=== PATIENT | male | born 1965 | race Caucasian/White ===

== ENCOUNTER 2018-12-07 13:23 | Inpatient (IN) ==
[2018-12-07] MEDS ORDERED: DEXAMETHASONE SODIUM PHOSP/PF 10 MG/ML VIAL ONE (13:30)
[2018-12-07] MEDS ORDERED: ALBUTEROL SULFATE/IPRATROPIUM 3 ML NEBU IH ONE ×2 (13:30)
[2018-12-07] MEDS ORDERED: DEXAMETHASONE SODIUM PHOSP/PF 10 MG/ML VIAL IV ONE (13:30)
--- NOTE | 2018-12-07 13:37 | ERNOTE ---
Dyspnea - Date Date of Service: 12/07/18 - General Presenting Symptoms: shortness of breath Time Seen by Provider: 12/07/18 13:34 Source: patient - Immun/Allergies/Home Medications Immunizations: IMMUNIZATION HX Immunizations Up to Date No History of Influenza Vaccine No Hx Pneumococcal Vaccination No Allergies/Adverse Reactions: Allergies Tetanus Vaccines and Toxoid [Tetanus Vaccines & Toxoid] Allergy (Verified 12/07/18 13:31) Home Medications: HOME MEDICATIONS clonidine HCl 0.3 mg tablet 0.3 mg PO BID #60 tab 06/13/18 [Last Taken Unknown] atorvastatin 40 mg tablet 40 mg PO DAILY #90 tab 07/25/18 [Last Taken Unknown] metoprolol succinate ER 200 mg tablet,extended release 24 hr 200 mg PO DAILY #90 tab 07/25/18 [Last Taken Unknown] omeprazole 20 mg capsule,delayed release 20 mg PO DAILY #90 cap 07/25/18 [Last Taken Unknown] duloxetine 60 mg capsule,delayed release 120 mg PO DAILY #60 cap 08/04/18 [Last Taken Unknown] amlodipine 10 mg tablet See Rx Instructions .ROUTE .COMPLEX #90 tablet 10/20/18 [Last Taken Unknown] hydroxyzine HCl 25 mg tablet 50 mg PO BID PRN #120 tab 10/20/18 [Last Taken Unknown] - History of Present Illness Narrative: Patient is a 53-year-old gentleman who presents to the emergency room from the clinic acutely dyspneic. Apparently this has been going on for the past 3 days. Patient fell out his bed 3 days ago and landed on the left chest area now complaining of lateral chest wall pain, dyspnea. While at the clinic patient was noted to be tachycardic and tachypneic so he was brought to the emergency room for further evaluation. He has a history of COPD and quit smoking 2 days ago. Also reports some occasional wheezes but denies any palpitations, fatigue, leg swelling, fever, chills, night sweats Associated Symptoms-Dyspnea: Reports: chest pain/discomfort. Denies: fever/chills, sweating, dizziness, lightheadedness, weakness, tingling of hands/face, muscle spasms Prior Treatment: Reports: recently seen, treated by physician Review of Systems - Review of Systems Constitutional: Present: See HPI EYE: Present: see HPI ENT: Present: See HPI Respiratory: Present: See HPI, shortness of breath Cardiology: Present: See HPI, chest pain Gastrointestinal/Abdominal: Present: See HPI Genitourinary: Present: See HPI Musculoskeletal: Present: See HPI Skin: Present: See HPI Medical History (Updated 12/07/18 @ 13:37 by Ventura Healy MD) Depression (Chronic) Onset Date: Unknown Anxiety (Chronic) Onset Date: Unknown Radiculopathy of leg (Chronic) Onset Date: Unknown bilateral Radiculopathy of arm (Chronic) Onset Date: Unknown bilateral Hypertension, benign (Chronic) Onset Date: Unknown GERD (gastroesophageal reflux disease) (Chronic) Onset Date: Unknown Chronic back pain (Chronic) Onset Date: Unknown Tobacco abuse (Chronic) Onset Date: Unknown Refused influenza vaccine Onset Date: ~05/10/18 Surgical History: Surgical History (Updated 01/17/18 @ 14:22 by Colleen Watts RN) Bilateral femoral artery stenosis Onset Date: ~09/2017 stent placement H/O neck surgery Onset Date: Unknown Family History: Family History (Updated 01/17/18 @ 14:24 by Colleen Watts RN) Brother Diabetes Hypertension Pancreatitis GERD (gastroesophageal reflux disease) Gastric ulcer Father Gastric ulcer GERD (gastroesophageal reflux disease) Mother GERD (gastroesophageal reflux disease) Sister Thyroid disease Social History: Preferred Language Kyrgyz Smoking Status Current every day smoker Have you smoked in the past 12 Yes months Smoking packs per day 1 Abuse History No History of abuse Psych History No pertinent hx Alcohol Use heavy (Last Updated 12/07/18 @ 13:30 by BOBY Dee) No Social History Section defined Physical Exam - Physical Exam General Appearance: Present: wd/wn, alert, no apparent distress Head Exam: Present: normal inspection, no evidence of injury Eye Exam: Normal inspection: bilateral, PERRL: bilateral, EOMI: bilateral Neck: Present: normal inspection, nontender, supple, full range of motion Respiratory: Present: no respiratory distress, normal breath sounds, no accessory muscle use, chest tenderness - Appears to have some chest tenderness at the lateral aspect of the chest wall, decreased breath sounds - On the left Cardiovascular/Chest: Present: regular rate, rhythm, no murmur, normal peripheral pulses Gastrointestinal/Abdominal: Present: normal bowel sounds, nontender, nondistended Extremity Exam: Present: normal inspection, normal except -, non-tender Neurological Exam: Present: alert, oriented, normal mood/affect, no motor/sensory deficits, 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 - Vital Signs Patient's Vital Signs:: I have reviewed the patient's vital signs. Vital Signs: Vital Signs 12/07/18 13:27 Temperature 36.9 C Pulse Rate 95 Respiratory Rate 28 H Blood Pressure 135/97 H O2 Sat by Pulse Oximetry 94 - EKG EKG #1 EKG read: Interp. by me EKG Comments: EKG consistent with normal sinus rhythm with occasional premature atrial complexes. Has a normal P wave and IN interval. [place] appear within normal limits and so is the QRS interval. There is no AV block or bundle branch block. There is no ST elevation. - CT/Ultrasound CT/Ultrasound Narrative: Technique: Multiple thin-section contrast-enhanced axial CT images of the chest were obtained after rapid infusion of intravenous contrast material, according to pulmonary angiography protocol. Coronal maximal intensity projection (MIP) images were also submitted for interpretation. Individualized dose optimization technique was used for the performed procedure including automated exposure control, adjustment of the mA and/or kV according to patient size and/or the iterative reconstruction technique. Comparison: Chest x-ray performed earlier today. Findings: There is adequate opacification of the pulmonary arterial system. No intraluminal filling defects to suggest pulmonary embolism. The aorta shows scattered atherosclerosis but is normal caliber and course without aneurysmal dilation or evidence for dissection. There are very large bilateral left greater than right pleural effusions. Associated compressive atelectasis of the left lower lobe and partial compressive atelectasis the right lower lobe. There is scattered groundglass opacities in the bilateral upper lobes suggestive of potential inflammatory or infectious process. No mediastinal or hilar lymphadenopathy. The osseous structures demonstrate degenerative change of the spine and shoulders IMPRESSION: 1. NO EVIDENCE FOR PULMONARY EMBOLISM. 2. VERY LARGE BILATERAL LEFT GREATER THAN RIGHT PLEURAL EFFUSIONS WITH ASSOCIATED COMPRESSIVE ATELECTASIS OF BILATERAL LOWER LOBES LEFT WORSE THAN RIG HT 3. SOME ADDITIONAL SCATTERED GROUNDGLASS OPACITIES IN THE UPPER LOBES BILATERALLY SUGGESTIVE OF MILD INFLAMMATORY OR INFECTIOUS PROCESS. - Progress/Reassessment Chief Complaint: Dyspnea Progress:: Unchanged Progress Note-Subjective: 12/07/18 16:07 Patient is seen and evaluated. Upon arrival his blood pressure is somewhat elevated. Physical examination see my notes. Blood work reviewed with patient. He appears to be hyponatremic with a sodium of 127. BNP is elevated at 5000+. D-dimer is elevated. Greater than 10 Chest x-ray obtained consistent with bilateral pleural effusion greater on the left and on the right. CT scanning of the chest is consistent with no pneumothorax or pulmonary embolism. However there is persistence of bilateral pleural effusion greater than left and on the right. CBC is also significant for significant leukocytosis of 22,000. Given his leukocytosis and hyponatremia I spoke with Dr. Rocio Quinteros regarding admitting the patient. She is agreeable. She will be consulting Dr. Hyde for his pleural effusion - Transfer of Care Expected Disposition: Admit Departure Clinical Impression: Acute chest wall pain, COPD with acute exacerbation, Pleural effusion - Departure Disposition: Still a patient Condition: Stable Referrals: Rocio Buck FNP [Primary Care Provider] -
[2018-12-07 13:44] LABS: Hematocrit 44.6 % (42.0-52.0); Hemoglobin 15.6 gm/dL (13.5-18.0); Mean Corpuscular Hemoglobin 30.8 pg (27-31); Mean Platelet Volume 9.2 fl (8-11.3); Platelet Count 355 K/mm3 (150-450); Red Blood Count 5.07 M/mm3 (4.7-6.0); Red Cell Distribution Width 13.6 % (11.5-14.0); White Blood Count 22.9 K/mm3 (4.0-10.5)
[2018-12-07 13:47] LABS: Total Cells Counted 100
[2018-12-07 14:04] LABS: ALT 24 U/L (19-67); AST 30 U/L (0-48); Albumin * 2.3 gm/dl (3.4-5.0); Alkaline Phosphatase * 143 U/L (50-170); Anion Gap 15.4 mmol/L (6.8-13.8); BNP * 5485 pg/mL (5-175); BUN/Creatinine Ratio 22.5 (9.0-21.6); Bilirubin, Total 0.6 mg/dL (0.0-1.1); Blood Urea Nitrogen 16 mg/dL (6-23); Ca. Corrected For Albumin 9.7 mg/dL (8.4-10.2); Calcium * 8.7 mg/dL (7.9-10.9); Carbon Dioxide 24.3 mmol/L (24-32.6); Chloride 92 mmol/L (97-106); Glucose * 116 mg/dL (70-110); Potassium 4.7 mmol/L (3.4-4.6); Sodium 127 mmol/L (132-142); Total Protein 6.2 gm/dL (6.2-8.2)
[2018-12-07 14:05] LABS: Troponin I Less than 0.017 ng/mL (0.00-0.10)
[2018-12-07 14:09] LABS: Eosinophil 1 % (0-3); Lymphocyte 14 % (20-51); Monocyte 9 % (0-9); Neutrophil 76 % (42-75); Neutrophil # 17.4 K/mm3 (1.3-6.0)
[2018-12-07 14:10] LABS: Platelet Estimate Increased (NORMAL); Target Cells Trace
[2018-12-07] MEDS ORDERED: LEVOFLOXACIN IN DEXTROSE 5 % 750 MG/150 ML BAG IV ONE (15:34)
[2018-12-07] MEDS ORDERED: FUROSEMIDE 10 MG/ML VIAL ONE (16:16)
[2018-12-07] MEDS ORDERED: FUROSEMIDE 10 MG/ML VIAL IV ONE (16:21)
[2018-12-07] MEDS ORDERED: hydrOXYzine HCL 25 MG TABLET PO PRN (17:43)
--- NOTE | 2018-12-07 18:05 | HP ---
Chief Complaint - Chief Complaint Date of Service: 12/07/18 Time of Service: 16:30 Chief Complaint: shortness of breath History of Present Illness: Patient seen and examined in the ED. He reports a history of HTN, but is unable to name his medications or other medical problems. He presented to the ED after having 3 days of shortness of breath, 4 days ago, his dog pushed him out of bed, and in the fall he hit both sides of his ribs on the bed and coffee table. The next morning, he noticed he was short of breath. Denies chest pain, wheezing, fever. He has a smoking history, and quit two days ago since he developed the shortness of breath. He has some lower extremity swelling, which he reports has been present since he had stents placed in his groin for poor circulation. He reports having a GI illness about three weeks ago, with wretching without vomiting and diarrhea, which has since resolved. He has never had this shortness of breath before. He feels like he's been gaining weight lately. Medical History (Updated 12/07/18 @ 18:04 by Rocio Quinteros DO) Depression (Chronic) Onset Date: Unknown Anxiety (Chronic) Onset Date: Unknown Radiculopathy of leg (Chronic) Onset Date: Unknown bilateral Radiculopathy of arm (Chronic) Onset Date: Unknown bilateral Hypertension, benign (Chronic) Onset Date: Unknown GERD (gastroesophageal reflux disease) (Chronic) Onset Date: Unknown Chronic back pain (Chronic) Onset Date: Unknown Tobacco abuse (Chronic) Onset Date: Unknown Refused influenza vaccine Onset Date: ~05/10/18 Surgical History: Surgical History (Updated 12/07/18 @ 18:04 by Rocio Quinteros DO) Bilateral femoral artery stenosis Onset Date: ~09/2017 stent placement H/O neck surgery Onset Date: Unknown Family History: Family History (Updated 01/17/18 @ 14:24 by Colleen Watts RN) Brother Diabetes Hypertension Pancreatitis GERD (gastroesophageal reflux disease) Gastric ulcer Father Gastric ulcer GERD (gastroesophageal reflux disease) Mother GERD (gastroesophageal reflux disease) Sister Thyroid disease Social History: Preferred Language Danish Smoking Status Current every day smoker Have you smoked in the past 12 Yes months Smoking packs per day 1 Abuse History No History of abuse Psych History No pertinent hx Alcohol Use heavy (Last Updated 12/07/18 @ 13:30 by Rocio [place], [employer]) No Social History Section defined Review Of Systems (GEN) - Review of Systems Generalized/Overall Review: Present: Weight gain - subjective, not sure how much weight in how much time. Absent: Fever Respiratory: Present: Shortness of Breath Cardiac: Present: Edema. Absent: Chest Pain Abdominal: Present: Nausea, Diarrhea - 3 weeks ago Genitourinary: Present: Frequency - urinates "30-40 times overnight" Musculoskeletal: Present: Joint Swelling - since stents were placed in his groin, Other Neurological: Present: Other - lower extremity twitching since neck surgery Skin: Present: Change in Color - foot discoloration, left greater than right, since stents placed in his groin, Bruising - bilateral feet Immunizations: IMMUNIZATION HX Immunizations Up to Date No History of Influenza Vaccine No Hx Pneumococcal Vaccination No Allergies/Adverse Reactions: Allergies Allergy/AdvReac Type Severity Reaction Status Date / Time Tetanus Vaccines and Toxoid Allergy Verified 12/07/18 13:31 [Tetanus Vaccines & Toxoid] Home Medications: HOME MEDICATIONS clonidine HCl 0.3 mg tablet 0.3 mg PO BID #60 tab 06/13/18 [Last Taken Unknown] atorvastatin 40 mg tablet 40 mg PO DAILY #90 tab 07/25/18 [Last Taken Unknown] metoprolol succinate ER 200 mg tablet,extended release 24 hr 200 mg PO DAILY #90 tab 07/25/18 [Last Taken Unknown] omeprazole 20 mg capsule,delayed release 20 mg PO DAILY #90 cap 07/25/18 [Last Taken Unknown] duloxetine 60 mg capsule,delayed release 120 mg PO DAILY #60 cap 08/04/18 [Last Taken Unknown] amlodipine 10 mg tablet See Rx Instructions .ROUTE .COMPLEX #90 tablet 10/20/18 [Last Taken Unknown] hydroxyzine HCl 25 mg tablet 50 mg PO BID PRN #120 tab 10/20/18 [Last Taken Unknown] Exam - Exam Vital Signs: Vital Signs - Last Taken Temp 36.9 C 12/07/18 17:20 Pulse 80 12/07/18 17:20 Resp 20 12/07/18 17:20 BP 196/102 H 12/07/18 17:20 Pulse Ox 95 12/07/18 17:20 Constitutional: Present: Alert, Cooperative, No distress, Looks Older than stated age ENT Exam: Present: other - poor dentition Respiratory: Present: decreased breath sounds - bilateral posterior, left lateral, No wheezing, other - wearing O2 via NC Cardiovascular/Chest: Present: regular rate, rhythm, other - cap refill of 3 seconds in bilateral great toes Abdomen: Present: nontender, firm Extremity: Present: lower extremity edema - 1+bilateral to the ankle, nonpitting Skin Exam: Present: other - cool left foot, ventral ecchymosis Eye contact: Present: cooperative Diagnostic Studies: Abnormal Lab Results 12/07/18 12/07/18 12/07/18 Range/Units 13:41 13:41 14:06 WBC 22.9 H (4.0-10.5) K/mm3 Neutrophils % (Manual) 76 H (42-75) % Lymphocytes % (Manual) 14 L (20-51) % Neutrophils # (Manual) 17.4 H (1.3-6.0) K/mm3 Monocytes # (Manual) 2.1 H (0.0-1.0) k/mm3 Platelet Estimate Increased H (NORMAL) D-Dimer 10.0 H (0.19-0.49) ug/mL Sodium 127 L (132-142) mmol/L Plasma Sodium 127 L (130-142) mmol/L Potassium 4.7 H (3.4-4.6) mmol/L Chloride 92 L (97-106) mmol/L Anion Gap 15.4 H (6.8-13.8) mmol/L BUN/Creatinine Ratio 22.5 H (9.0-21.6) Random Glucose 116 H (70-110) mg/dL B-Natriuretic Peptide 5485 H (5-175) pg/mL Albumin 2.3 L (3.4-5.0) gm/dl Laboratory Results WBC 22.9 K/mm3 (4.0-10.5) H 12/07/18 13:41 RBC 5.07 M/mm3 (4.7-6.0) 12/07/18 13:41 Hgb 15.6 gm/dL (13.5-18.0) 12/07/18 13:41 Hct 44.6 % (42.0-52.0) 12/07/18 13:41 MCV 88.0 fl (78-100) 12/07/18 13:41 MCH 30.8 pg (27-31) 12/07/18 13:41 MCHC 35.0 g/dl (32-36) 12/07/18 13:41 RDW 13.6 % (11.5-14.0) 12/07/18 13:41 Plt Count 355 K/mm3 (150-450) 12/07/18 13:41 MPV 9.2 fl (8-11.3) 12/07/18 13:41 76 % (42-75) H 12/07/18 13:41 14 % (20-51) L 12/07/18 13:41 9 % (0-9) 12/07/18 13:41 1 % (0-3) 12/07/18 13:41 17.4 K/mm3 (1.3-6.0) H 12/07/18 13:41 3.2 k/mm3 (1.5-3.5) 12/07/18 13:41 2.1 k/mm3 (0.0-1.0) H 12/07/18 13:41 0.2 k/mm3 (0.0-0.7) 12/07/18 13:41 Increased (NORMAL) H 12/07/18 13:41 Trace 12/07/18 13:41 10.0 ug/mL (0.19-0.49) H 12/07/18 14:06 Sodium 127 mmol/L (132-142) L 12/07/18 13:41 127 mmol/L (130-142) L 12/07/18 13:41 Potassium 4.7 mmol/L (3.4-4.6) H 12/07/18 13:41 Chloride 92 mmol/L (97-106) L 12/07/18 13:41 Carbon Dioxide 24.3 mmol/L (24-32.6) 12/07/18 13:41 15.4 mmol/L (6.8-13.8) H 12/07/18 13:41 BUN 16 mg/dL (6-23) 12/07/18 13:41 0.71 mg/dL (0.4-1.4) 12/07/18 13:41 Est GFR (Non-Af Amer) 122 mL/min (60-130) D 12/07/18 13:41 22.5 (9.0-21.6) H 12/07/18 13:41 116 mg/dL (70-110) H 12/07/18 13:41 Calcium 8.7 mg/dL (7.9-10.9) 12/07/18 13:41 Calcium Adj for Albumin 9.7 mg/dL (8.4-10.2) 12/07/18 13:41 0.6 mg/dL (0.0-1.1) 12/07/18 13:41 AST 30 U/L (0-48) 12/07/18 13:41 ALT 24 U/L (19-67) 12/07/18 13:41 143 U/L (50-170) 12/07/18 13:41 Less than 0.017 ng/mL (0.00-0.10) 12/07/18 13:41 B-Natriuretic Peptide 5485 pg/mL (5-175) H 12/07/18 13:41 6.2 gm/dL (6.2-8.2) 12/07/18 13:41 2.3 gm/dl (3.4-5.0) L 12/07/18 13:41 Assessment/Plan - Assessment/Plan (1) Pleural effusion Assessment: Bilateral, left greater than right. Dr. Hui has graciously agreed to perform a thoracentesis, and will send the pleural fluid off for cytology. Ddx includes hemothorax from trauma, malignancy, heart failure, cirrhosis, pneumonia. He has an elevated WBC. With his hyponatremia and decreased albumin, will need to ensure he does not have significant alcohol intake. HIs BNP is elevated, making CHF a possibility. With his elevated D dimer and history of fall, trauma is definitely a possible source. Will interpret the pleural fluid accordingly. Problem: Acute (2) Acute chest wall pain Assessment: Likely secondary to his fall. He was not acutely tender on physical exam, and no fractures noted on his CXR or CT angiogram. Problem: Acute (3) Anxiety Problem: Chronic (4) Hypertension, benign Assessment: Resume home meds. Problem: Chronic (5) GERD (gastroesophageal reflux disease) Problem: Chronic (6) Tobacco abuse Problem: Chronic
[2018-12-07] MEDS: ENALAPRIL MALEATE 20 MG TABLET PO SCH (19:21)
[2018-12-07] MEDS: amLODIPine BESYLATE 10 MG TABLET PO SCH (19:21)
[2018-12-07] MEDS: METOPROLOL SUCCINATE 100 MG TABLET.SA PO SCH (19:21)
[2018-12-07 19:25] LABS: Body Fluid WBC 4017 /uL (0-1000)
--- NOTE | 2018-12-07 19:38 | OR ---
Operative Report - Dictated Report Narrative: OPERATIVE REPORT DATE OF OPERATION: 12/07/2018 PREOPERATIVE DIAGNOSIS: Bilateral pleural effusions (left greater than right) POSTOPERATIVE DIAGNOSIS: Same (s/p left thoracentesis) OPERATION: Left posterior thoracentesis SURGEON: Keisha Hui MD ANESTHESIA: 1% Xylocaine local INDICATIONS FOR PROCEDURE: The patient is a 53-year-old male who presented to the emergency room with progressive increasing shortness of breath and dyspnea on exertion. He was found to have a large left pleural effusion and smaller right pleural effusion FINDINGS: 2100 mL clear al fluid removed from the left chest with marked improvement in ability to breathe NARRATIVE OF PROCEDURE: The patient was identified preoperatively, the surgical site was identified, and prior to the procedure a timeout was observed. With the patient in sitting position the left posterior chest was percussed and a level of dullness marked. The area was prepped with chlorhexidine. The area was draped sterilely. The skin, subcutaneous tissue, and periosteum of the chest and rib were anesthetized with 1% Xylocaine. The same needle was used to access the chest cavity with a return of al fluid. A small skin incision was made and the left posterior chest accessed with a safety centesis kit. 2100 mL of clear al fluid was removed. The catheter was removed and a Band-Aid applied. The patient tolerated the procedure well and reported a marked improvement in his ability to breathe. The pleural fluid was transported to the lab for studies. Post procedure chest x-ray reveals marked improvement in left lung aeration and decrease in the amount of pleural fluid with still some blunting of the costophrenic angle. There is no obvious pneumothorax to my review although the formal report is not yet available Reviewed and electronically signed
[2018-12-07 20:30] LABS: Body Fluid Appearance CLOUDY (CLEAR); Body Fluid Color AMBER (COLORLESS)
--- NOTE | 2018-12-07 20:50 | CONS ---
[facility] - General Date of Service: 12/07/18 Source: patient, RN/MD, RN notes reviewed, old records Exam Limitations: no limitations - History of Present Illness Initial Comments: His dog apparently pushed him out of bed 3 or 4 days ago. He struck his ribs on the coffee table. He has been sore. He became more acutely short of breath with marked dyspnea on exertion for even simple activities and presented to the emergency room. He has smoked cigarettes for about 30 years and has a chronic cough, however for the past 2 weeks or so he is noticed increasing dyspnea on exertion. He reports he has not slept well for the past week because he has to lay on his right side and then could only sleep for a while and has to sit up to get his breath. Chest x-ray in the emergency room revealed a moderate left pleural effusion with some blunting of the right costophrenic angle. His d-dimer was elevated and a CT scan of the chest was performed for possible pulmonary embolus. There is no pulmonary embolus however the scan reveals a significant layering right pleural effusion as well. He is hyponatremic and his albumin is low. Severity: moderate, severe Modifying Factors - (Worsens): Reports: other - Any activity Modifying Factors - (Improves): Reports: rest Associated Symptoms: cough, weakness Allergies/Adverse Reactions: Allergies Tetanus Vaccines and Toxoid [Tetanus Vaccines & Toxoid] Allergy (Unknown, Verified 12/07/18 19:33) Home Medications: Home Medications Medication Instructions Recorded Last Taken clonidine HCl 0.3 mg tablet 0.3 mg PO BID #60 tab 06/13/18 Unknown atorvastatin 40 mg tablet 40 mg PO DAILY #90 tab 07/25/18 Unknown metoprolol succinate ER 200 mg 200 mg PO DAILY #90 tab 07/25/18 Unknown tablet,extended release 24 hr omeprazole 20 mg capsule,delayed 20 mg PO DAILY #90 cap 07/25/18 Unknown release duloxetine 60 mg capsule,delayed 120 mg PO DAILY #60 cap 08/04/18 Unknown release amlodipine 10 mg tablet See Rx Instructions .ROUTE 10/20/18 Unknown .COMPLEX #90 tablet hydroxyzine HCl 25 mg tablet 50 mg PO BID PRN #120 tab 10/20/18 Unknown Medications - Medications Current Medications: Current Medications Amlodipine Besylate (Norvasc) 10 mg PO DAILY TED Stop: 01/06/19 18:01 Last Admin: 12/07/18 19:21 Dose: 10 mg Documented by: Enalapril Maleate (Vasotec) 20 mg PO DAILY [facility] Stop: 01/06/19 18:01 Last Admin: 12/07/18 19:21 Dose: 20 mg Documented by: Metoprolol Succinate (Toprol Xl) 200 mg PO DAILY [facility] Stop: 01/06/19 17:46 Last Admin: 12/07/18 19:21 Dose: 200 mg Documented by: Review of Systems - Review of Systems Generalized/Overall Review: Present: Weakness, Fatigue. Absent: Chills, Fever EENTM: Present: No Symptoms Reported Respiratory: Present: Shortness of Breath Cardiac: Absent: Chest Pain Abdominal: Present: No Symptoms Reported Genitourinary: Present: No Symptoms Reported Musculoskeletal: Present: Other - Bilateral rib pain Neurological: Present: No Symptoms Reported Skin: Present: No Symptoms Reported Physical Examination - Exam Vital Signs: Vital Signs - Last Taken Temp 36.9 C 12/07/18 17:20 Pulse 80 12/07/18 17:20 Resp 20 12/07/18 17:20 BP 196/102 H 12/07/18 17:20 Pulse Ox 95 12/07/18 17:20 O2 Oxygen Delivery Method Nasal Cannula Constitutional: Present: Alert, Oriented x3, Cooperative, Moderate distress, Looks Older than stated age ENT Exam: Present: normal ENT inspection, other - Poor dentition, temporal wasting Eye Exam: bilateral eye: normal inspection Neck: Present: full range of motion, normal inspection Respiratory: Present: other - Dullness to percussion one third of the way up on the left posteriorly with diminished breath sounds left base Cardiovascular/Chest: Present: other - Mottling Abdomen: Present: other - Denies abdominal pain or tenderness /Rectal: Present: Exam deferred Extremity: Present: normal range of motion Skin Exam: Present: mottled 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, normal cerebellar test, no motor/sensory deficits Appearance: Present: disheveled Eye contact: Present: cooperative, good eye contact, normal speech Thoughts: Present: normal thought pattern - Results and Findings: Lab/Microbiology results last 24 hrs: Abnormal/Pending Laboratory Last 24 HRS 12/07/18 12/07/18 12/07/18 18:30 18:30 14:06 WBC Neutrophils % (Manual) Lymphocytes % (Manual) Neutrophils # (Manual) Monocytes # (Manual) Platelet Estimate D-Dimer 10.0 H Sodium Plasma Sodium Potassium Chloride Anion Gap BUN/Creatinine Ratio Random Glucose B-Natriuretic Peptide Albumin Fluid WBC 4017 H Fluid RBC Greater than 1000.0 H Pleural pH 8.0 H 12/07/18 12/07/18 13:41 13:41 WBC 22.9 H Neutrophils % (Manual) 76 H Lymphocytes % (Manual) 14 L Neutrophils # (Manual) 17.4 H Monocytes # (Manual) 2.1 H Platelet Estimate Increased H D-Dimer Sodium 127 L Plasma Sodium 127 L Potassium 4.7 H Chloride 92 L Anion Gap 15.4 H BUN/Creatinine Ratio 22.5 H Random Glucose 116 H B-Natriuretic Peptide 5485 H Albumin 2.3 L Fluid WBC Fluid RBC Pleural pH Culture 12/07/18 18:30 Gram Stain - Final Pleural Fluid Large left pleural effusion and significant right pleural effusion on CT - Assessments/Findings (1) Pleural effusion Diagnosis(s): I used diagrams to explain pleural effusions and what was involved with a thoracentesis. The risks and possible complications of the procedure were explained. After interactive discussion his questions were answered to his apparent satisfaction and he has given informed consent for left posterior thoracentesis which will be performed at the bedside shortly. Problem: Acute
[2018-12-07] MEDS: CLONIDINE HCL 0.1 MG TABLET PO SCH (21:48)
[2018-12-08] MEDS ORDERED: ACETAMINOPHEN 325 MG TABLET PO PRN (00:36)
[2018-12-08] MEDS ORDERED: HYDROcodone/ACETAMINOPHEN 1 EACH TABLET PO ONE (00:50)
--- NOTE | 2018-12-08 04:44 | PATH ---
PHYSICIAN: Rocio Quinteros DO LAB#: [id number] SPECIMEN DATE: 12/08/2018 SPECIMEN: Left pleural fluid CLINICAL INFORMATION: Patient is a 53-year-old man was pushed out of the bed by his dog 4 days previously and hit both sides of his ribs on bed and the coffee table. The next morning he noticed shortness of breath. He was found on radiologic examination to have a large left pleural effusion and smaller right pleural effusion. The patient underwent left posterior thoracentesis. Operative findings: 2100 mL of clear al fluid removed from the left chest resulted in a marked improvement in the ability to breathe. Pleural fluid total protein 2.7 g/dL and LDH 287 U/L. Serum total protein 6.2 g/dL and LDH 119. LDH Ratio pleural fluid/serum 287/119 =2.4; Protein Ratio pleural fluid/serum 2.7/5.0=.54, consistent with exudate. GROSS DESCRIPTION: The specimen is received in the clinical lab appropriately designated "left pleural effusion." The specimen consists of 2100 mL of al slightly cloudy pleural fluid. A 40 mL aliquot is mixed with an equal volume of cytospin fixative and 2 cytospin slides are prepared. DIAGNOSIS: PLEURAL CAVITY, LEFT PLEURAL FLUID, THORACENTESIS AT BEDSIDE: -BENIGN REACTIVE CHANGES IN A HIGH CELLULARITY EXUDATE (LDH RATIO PLEURAL FLUID/SERUM = 2.4) COMMENT: Some proteinaceous debris, rare plasma cells, some lymphocytes, many mesothelial cells, some histiocytes, rare PMNs and rare RBCs. Cytologic examination of this exudate does not explain its origin. Further investigation is needed to determine an etiology. No malignant cells are present. Case findings are communicated with Dr. Quinteros on 12/08/2018.
[2018-12-08 05:55] LABS: Albumin * 1.8 gm/dl (3.4-5.0); Anion Gap 9.7 mmol/L (6.8-13.8); BUN/Creatinine Ratio 20.8 (9.0-21.6); Bilirubin, Total 0.5 mg/dL (0.0-1.1); Ca. Corrected For Albumin 9.7 mg/dL (8.4-10.2); Calcium * 8.3 mg/dL (7.9-10.9); Carbon Dioxide 29.5 mmol/L (24-32.6); Potassium 4.2 mmol/L (3.4-4.6)
[2018-12-08 06:53] LABS: Total Protein 5.3 gm/dL (6.2-8.2)
[2018-12-08] MEDS ORDERED: PANTOPRAZOLE SODIUM 20 MG TABLET.DR PO SCH (07:00)
--- NOTE | 2018-12-08 07:58 | PN ---
Subjective - Date and Time Seen Date: 12/08/18 Time: 07:56 Subjective Narrative: Patient has had improvement of his shortness of breath since yesterday's thoracentesis. Overnight, nursing was concerned about the coolness and blue appearance of his left foot. Arterial US showed femoral occlusion. He reports this has been present since his iliac artery stent placement in September 2017. He has been having pain for about a month. Of note, he also reports drinking 6-8 beers daily to help with his leg pain since he is not prescribed pain meds. His last drink was 3 days ago. Objective - Review of Systems Generalized/Overall Review: Denies: Fever Respiratory: Reports: Shortness of Breath - Improved. Denies: Cough Cardiac: Denies: Chest Pain, Edema Abdominal: Denies: Nausea Genitourinary Symptoms: Reports: No Symptoms Reported Musculoskeletal Complaints: Reports: Other - left lower leg pain Neurological: Reports: Numbness - left foot - Vitals Vitals: Last Vital Signs Temp 36.6 C 12/08/18 06:00 Pulse 75 12/08/18 06:00 Resp 18 12/08/18 06:00 BP 142/84 H 12/08/18 06:00 Pulse Ox 92 L 12/08/18 06:00 - Abnormal Lab Findings Abnormal Lab Findings: Abnormal Lab Results 12/07/18 12/07/18 12/07/18 Range/Units 13:41 13:41 14:06 WBC 22.9 H (4.0-10.5) K/mm3 Neutrophils % (Manual) 76 H (42-75) % Lymphocytes % (Manual) 14 L (20-51) % Neutrophils # (Manual) 17.4 H (1.3-6.0) K/mm3 Monocytes # (Manual) 2.1 H (0.0-1.0) k/mm3 Platelet Estimate Increased H (NORMAL) D-Dimer 10.0 H (0.19-0.49) ug/mL Sodium 127 L (132-142) mmol/L Plasma Sodium 127 L (130-142) mmol/L Potassium 4.7 H (3.4-4.6) mmol/L Chloride 92 L (97-106) mmol/L Anion Gap 15.4 H (6.8-13.8) mmol/L BUN/Creatinine Ratio 22.5 H (9.0-21.6) Random Glucose 116 H (70-110) mg/dL Lactate Dehydrogenase (85-227) U/L B-Natriuretic Peptide 5485 H (5-175) pg/mL Total Protein (6.2-8.2) gm/dL Albumin 2.3 L (3.4-5.0) gm/dl Fluid WBC (0-1000) /uL Fluid RBC (0-1000) /uL Pleural pH (6.8-7.6) 12/07/18 12/07/18 12/07/18 Range/Units 18:00 18:30 18:30 WBC (4.0-10.5) K/mm3 Neutrophils % (Manual) (42-75) % Lymphocytes % (Manual) (20-51) % Neutrophils # (Manual) (1.3-6.0) K/mm3 Monocytes # (Manual) (0.0-1.0) k/mm3 Platelet Estimate (NORMAL) D-Dimer (0.19-0.49) ug/mL Sodium (132-142) mmol/L Plasma Sodium (130-142) mmol/L Potassium (3.4-4.6) mmol/L Chloride (97-106) mmol/L Anion Gap (6.8-13.8) mmol/L BUN/Creatinine Ratio (9.0-21.6) Random Glucose (70-110) mg/dL Lactate Dehydrogenase 18 L (85-227) U/L B-Natriuretic Peptide (5-175) pg/mL Total Protein 5.3 L (6.2-8.2) gm/dL Albumin (3.4-5.0) gm/dl Fluid WBC 4017 H (0-1000) /uL Fluid RBC Greater than 1000.0 H (0-1000) /uL Pleural pH 8.0 H (6.8-7.6) 12/08/18 Range/Units 05:15 WBC (4.0-10.5) K/mm3 Neutrophils % (Manual) (42-75) % Lymphocytes % (Manual) (20-51) % Neutrophils # (Manual) (1.3-6.0) K/mm3 Monocytes # (Manual) (0.0-1.0) k/mm3 Platelet Estimate (NORMAL) D-Dimer (0.19-0.49) ug/mL Sodium 128 L (132-142) mmol/L Plasma Sodium 128 L (130-142) mmol/L Potassium (3.4-4.6) mmol/L Chloride 93 L (97-106) mmol/L Anion Gap (6.8-13.8) mmol/L BUN/Creatinine Ratio (9.0-21.6) Random Glucose 131 H (70-110) mg/dL Lactate Dehydrogenase (85-227) U/L B-Natriuretic Peptide (5-175) pg/mL Total Protein 5.0 L (6.2-8.2) gm/dL Albumin 1.8 L (3.4-5.0) gm/dl Fluid WBC (0-1000) /uL Fluid RBC (0-1000) /uL Pleural pH (6.8-7.6) - Exam Constitutional: Present: Alert, Cooperative, Looks Older than stated age Respiratory: Present: decreased breath sounds, other - wearing 2 L via NC. Absent: rales, rhonchi Cardiovascular/Chest: Present: regular rate, rhythm, other - unable to obtain dorsalis pedis or posterior tibial pulses of left foot via palpation or doppler Abdomen: Present: soft, nontender Extremity: Absent: lower extremity edema Skin Exam: Present: other - bluish discoloration of bilateral feet, left greater than right Neurologic: Present: other - numbness of bilateral feet Assessment/Plan - Problems/Diagnosis (1) Pleural effusion Problem: Acute Narrative: Left thoracentesis done yesterday, which showed exudative fluid. Malignant cells not found. Not all the studies have resulted yet from the pleural fluid. WBC very high, greater than 4,000, indicating possible infectious source. WBC on labs was also high at 22.9. Continue rocephin. CT suggested possible infectious process. He continues to require oxygen, and will wean as tolerated. (2) Popliteal artery stenosis, left Problem: Chronic Narrative: Patient reports having decreased blood flow to his left foot since his iliac artery stent placement in September 2017. His nurse was concerned overnight due to the foot feeling cool and having bluish discoloration, and US was obtained, which showed "Extensive left lower extremity arterial occlusion, distal to the proximal superficial femoral artery." He reports having increased pain for about a month. This is likely chronic. His surgeon has been called to see if anything needs to be done acutely, or if he can follow up after DC. (3) Acute chest wall pain Problem: Acute Narrative: Patient reports falling out of bed approximately 4 days prior to admission, and is having left lateral-posterior rib pain, not acutely tender to palpation. (4) Anxiety Problem: Chronic (5) Hypertension, benign Problem: Chronic Narrative: BP has been appropriate since restarting his home meds. (6) GERD (gastroesophageal reflux disease) Problem: Chronic (7) S/P insertion of iliac artery stent Problem: Chronic (8) Alcohol abuse Problem: Chronic Narrative: [facility] protocol has been ordered. He states his last week was 3 days ago, and he denies feeling anxious or having increased shaking. (9) Hyponatremia Problem: Acute Narrative: Likely secondary to alcohol use and decreased po intake. With his bilateral pleural effusion, will not administer fluids, and recheck in the morning. (10) Tobacco abuse Problem: Chronic Narrative: He reports quitting 2 days prior to admission. Continued nicotine has likely contributing to his PAD.
[2018-12-08] MEDS: CLONIDINE HCL 0.1 MG TABLET PO SCH (08:27)
[2018-12-08] MEDS: METOPROLOL SUCCINATE 100 MG TABLET.SA PO SCH (08:27)
[2018-12-08] MEDS: amLODIPine BESYLATE 10 MG TABLET PO SCH (08:27)
[2018-12-08] MEDS: ENALAPRIL MALEATE 20 MG TABLET PO SCH (08:28)
[2018-12-08] MEDS ORDERED: FUROSEMIDE 10 MG/ML VIAL IV SCH (09:00)
[2018-12-08] MEDS ORDERED: DULoxetine HCL 30 MG CAPSULE.SA PO SCH (09:00)
[2018-12-08] MEDS ORDERED: HYDROcodone/ACETAMINOPHEN 1 EACH TABLET PO PRN (11:57)
[2018-12-08] MEDS ORDERED: HEPARIN SODIUM,PORCINE/D5W 25,000 UNITS/500 ML BAG IV PRN (12:11)
[2018-12-08] MEDS ORDERED: HEPARIN SODIUM,PORCINE 5,000 UNITS/ML VIAL IV ONE (12:16)
[2018-12-08] MEDS ORDERED: HEPARIN SODIUM,PORCINE 10,000 UNITS/ML VIAL IV ONE (12:30)
--- NOTE | 2018-12-08 12:55 | DS ---
Transfer Discharge Summary - Diagnosis(s)/Problems (1) Pleural effusion Problem: Acute (2) Popliteal artery stenosis, left Problem: Chronic (3) Acute chest wall pain Problem: Acute (4) Anxiety Problem: Chronic (5) Hypertension, benign Problem: Chronic (6) GERD (gastroesophageal reflux disease) Problem: Chronic (7) S/P insertion of iliac artery stent Problem: Chronic (8) Alcohol abuse Problem: Chronic (9) Hyponatremia Problem: Acute (10) Tobacco abuse Problem: Chronic - Course Description of Stay: Potential arterial occlusion Patient reports having decreased blood flow to his left foot since his iliac artery stent placement in September 2017. His nurse was concerned overnight due to the foot feeling cool and having bluish discoloration, and US was obtained, which showed "Extensive left lower extremity arterial occlusion, distal to the proximal superficial femoral artery." He reports having increased pain for about a month. This is likely chronic. However, around 11:30 this morning, he began complaining of being unable to move his right leg. He was assessed, and could not obtain patellar reflexes, the thigh was cool, no palpable pulses. Transfer process initiated. Pleural effusion Unclear etiology at this point. Left thoracentesis done 12/07 which showed exudative fluid. Malignant cells not found. Not all the studies have resulted yet from the pleural fluid. WBC very high, greater than 4,000, indicating possible infectious source. WBC on labs was also high at 22.9. Continue rocephin. CT suggested possible infectious process. He continues to require oxygen, and will wean as tolerated. Acute chest wall pain Patient reports falling out of bed approximately 4 days prior to admission, and is having left lateral-posterior rib pain, not acutely tender to palpation. Hypertension, benign BP has been appropriate since restarting his home meds. Alcohol abuse [facility] protocol has been ordered. He states his last week was 3 days ago, and he denies feeling anxious or having increased shaking. Hyponatremia Likely secondary to alcohol use and decreased po intake. With his bilateral pleural effusion, will not administer fluids. Procedures Performed: see notes below - lower ext arterial US - Results and Findings Results and Findings: Laboratory Results - last 24 hr 12/07/18 12/07/18 12/07/18 13:41 13:41 14:06 WBC 22.9 H RBC 5.07 Hgb 15.6 Hct 44.6 MCV 88.0 MCH 30.8 MCHC 35.0 RDW 13.6 Plt Count 355 MPV 9.2 Neutrophils % (Manual) 76 H Lymphocytes % (Manual) 14 L Monocytes % (Manual) 9 Eosinophils % (Manual) 1 Neutrophils # (Manual) 17.4 H Lymphocytes # (Manual) 3.2 Monocytes # (Manual) 2.1 H Eosinophils # (Manual) 0.2 Platelet Estimate Increased H Target Cells Trace PTT (Andreas) D-Dimer 10.0 H Sodium 127 L Plasma Sodium 127 L Potassium 4.7 H Chloride 92 L Carbon Dioxide 24.3 Anion Gap 15.4 H BUN 16 Creatinine 0.71 Est GFR (Non-Af Amer) 122 D BUN/Creatinine Ratio 22.5 H Random Glucose 116 H Calcium 8.7 Calcium Adj for Albumin 9.7 Total Bilirubin 0.6 AST 30 ALT 24 Alkaline Phosphatase 143 Lactate Dehydrogenase Troponin I Less than 0.017 B-Natriuretic Peptide 5485 H Total Protein 6.2 Albumin 2.3 L Fluid Color Fluid Appearance Fluid WBC Fluid RBC Fluid Neutrophils Fluid Lymphocytes Fluid Other Cells Pleural pH Pleural Total Protein Pleural Albumin Pleural LDH Pleural Glucose Miscellaneous Cytology 12/07/18 12/07/18 12/07/18 18:00 18:30 18:30 WBC RBC Hgb Hct MCV MCH MCHC RDW Plt Count MPV Neutrophils % (Manual) Lymphocytes % (Manual) Monocytes % (Manual) Eosinophils % (Manual) Neutrophils # (Manual) Lymphocytes # (Manual) Monocytes # (Manual) Eosinophils # (Manual) Platelet Estimate Target Cells PTT (Andreas) D-Dimer Sodium Plasma Sodium Potassium Chloride Carbon Dioxide Anion Gap BUN Creatinine Est GFR (Non-Af Amer) BUN/Creatinine Ratio Random Glucose Calcium Calcium Adj for Albumin Total Bilirubin AST ALT Alkaline Phosphatase Lactate Dehydrogenase 18 L Troponin I B-Natriuretic Peptide Total Protein 5.3 L Albumin Fluid Color Fluid Appearance Fluid WBC Fluid RBC Fluid Neutrophils Fluid Lymphocytes Fluid Other Cells Pleural pH 8.0 H Pleural Total Protein 2.7 Pleural Albumin 1.2 Pleural LDH 287 Pleural Glucose 106 Miscellaneous Cytology 12/07/18 12/07/18 12/08/18 18:30 18:30 05:15 WBC RBC Hgb Hct MCV MCH MCHC RDW Plt Count MPV Neutrophils % (Manual) Lymphocytes % (Manual) Monocytes % (Manual) Eosinophils % (Manual) Neutrophils # (Manual) Lymphocytes # (Manual) Monocytes # (Manual) Eosinophils # (Manual) Platelet Estimate Target Cells PTT (Andreas) D-Dimer Sodium 128 L Plasma Sodium 128 L Potassium 4.2 Chloride 93 L Carbon Dioxide 29.5 Anion Gap 9.7 BUN 20 Creatinine 0.96 Est GFR (Non-Af Amer) 86 D BUN/Creatinine Ratio 20.8 Random Glucose 131 H Calcium 8.3 Calcium Adj for Albumin 9.7 Total Bilirubin 0.5 AST 23 ALT 19 Alkaline Phosphatase 119 Lactate Dehydrogenase Troponin I B-Natriuretic Peptide Total Protein 5.0 L Albumin 1.8 L Fluid Color Mireya Fluid Appearance Cloudy Fluid WBC 4017 H Fluid RBC Greater than 1000.0 H Fluid Neutrophils 49 Fluid Lymphocytes 36 Fluid Other Cells 15 Pleural pH Pleural Total Protein Pleural Albumin Pleural LDH Pleural Glucose Miscellaneous Cytology Spec. sent to path. 12/08/18 06:07 WBC RBC Hgb Hct MCV MCH MCHC RDW Plt Count MPV Neutrophils % (Manual) Lymphocytes % (Manual) Monocytes % (Manual) Eosinophils % (Manual) Neutrophils # (Manual) Lymphocytes # (Manual) Monocytes # (Manual) Eosinophils # (Manual) Platelet Estimate Target Cells PTT (Gosper) 28.1 D-Dimer Sodium Plasma Sodium Potassium Chloride Carbon Dioxide Anion Gap BUN Creatinine Est GFR (Non-Af Amer) BUN/Creatinine Ratio Random Glucose Calcium Calcium Adj for Albumin Total Bilirubin AST ALT Alkaline Phosphatase Lactate Dehydrogenase Troponin I B-Natriuretic Peptide Total Protein Albumin Fluid Color Fluid Appearance Fluid WBC Fluid RBC Fluid Neutrophils Fluid Lymphocytes Fluid Other Cells Pleural pH Pleural Total Protein Pleural Albumin Pleural LDH Pleural Glucose Miscellaneous Cytology - Medications Medications: Active Medications Acetaminophen (Tylenol) 650 mg PO Q6H PRN PRN Reason: Mild pain (pain scale 1-3) Stop: 01/07/19 00:37 Last Admin: 12/08/18 04:21 Dose: 650 mg Documented by: Hydrocodone Bitart/Acetaminophen (Roscoe 5-325) 1 each PO Q6H PRN PRN Reason: Pain Stop: 01/07/19 11:58 Last Admin: 12/08/18 12:36 Dose: 1 each Documented by: Amlodipine Besylate (Norvasc) 10 mg PO DAILY [facility] Stop: 01/06/19 18:01 Last Admin: 12/08/18 08:27 Dose: 10 mg Documented by: Clonidine (Catapres) 0.3 mg PO BID [facility] Stop: 01/06/19 21:01 Last Admin: 12/08/18 08:27 Dose: 0.3 mg Documented by: Duloxetine HCl (Cymbalta) 120 mg PO DAILY [facility] Stop: 01/07/19 09:01 Last Admin: 12/08/18 08:27 Dose: 120 mg Documented by: Enalapril Maleate (Vasotec) 20 mg PO DAILY [facility] Stop: 01/06/19 18:01 Last Admin: 12/08/18 08:28 Dose: 20 mg Documented by: Ceftriaxone Sodium 1,000 mg/ (Dextrose/Water) 100 mls @ 200 mls/hr IV Q24H [facility]; Protocol Stop: 01/07/19 08:01 Last Admin: 12/08/18 08:28 Dose: 200 mls/hr Documented by: Metoprolol Succinate (Toprol Xl) 200 mg PO DAILY [facility] Stop: 01/06/19 17:46 Last Admin: 12/08/18 08:27 Dose: 200 mg Documented by: Pantoprazole Sodium (Protonix) 20 mg PO DAILY@0700 [facility] Stop: 01/07/19 07:01 Last Admin: 12/08/18 08:27 Dose: 20 mg Documented by: Discontinued Medications Hydrocodone Bitart/Acetaminophen (Roscoe 5-325) 1 each PO ONCE ONE Stop: 12/08/18 00:51 Last Admin: 12/08/18 00:54 Dose: 1 each Documented by: Albuterol/Ipratropium (Duoneb 2.5-0.5mg/3ml Soln) 3 ml IH ONCE ONE Stop: 12/07/18 13:31 Last Admin: 12/07/18 13:44 Dose: 3 ml Documented by: Dexamethasone Sodium Phosphate (Dexamethasone) 10 mg IV ONCE ONE Stop: 12/07/18 13:31 Last Admin: 12/07/18 13:45 Dose: 10 mg Documented by: Furosemide (Lasix) 40 mg IV ONCE ONE Stop: 12/07/18 16:22 Last Admin: 12/07/18 16:22 Dose: 40 mg Documented by: Levofloxacin/Dextrose (Levaquin) 750 mg in 150 mls @ 100 mls/hr IV ONCE ONE; Protocol Stop: 12/07/18 17:03 Last Admin: 12/07/18 16:25 Dose: 100 mls/hr Documented by: - Disposition Disposition: Short Term Hospital Inpatient Condition: Stable
[2018-12-08 14:07] VITALS: BP 151/93
== END 2018-12-08 13:35 | disposition short-term general hospital (02) | DRG 187 ==
LOC: ER 13:23 → MS 16:23
PROVIDERS: ADMIT Family Medicine; ATTEND Family Medicine
DX: W06.XXXA Fall from bed, initial encounter; F10.10 Alcohol abuse, uncomplicated; F41.9 Anxiety disorder, unspecified; S20.212A Contusion of left front wall of thorax, initial encounter; I70.202 Unspecified atherosclerosis of native arteries of extremities, left leg; F17.210 Nicotine dependence, cigarettes, uncomplicated; R07.89 Other chest pain; Y92.009 Unspecified place in unspecified non-institutional (private) residence as the place of occurrence of the external cause; I77.1 Stricture of artery; J44.1 Chronic obstructive pulmonary disease with (acute) exacerbation; E87.1 Hypo-osmolality and hyponatremia; J90 Pleural effusion, not elsewhere classified; K21.9 Gastro-esophageal reflux disease without esophagitis; I10 Essential (primary) hypertension
CPT/HCPCS: 36415; 71010; 71020; 71035; 71045; 71046; 71275; 80053; 82042; 82945; 82947; 83519; 83615; 83880; 83986; 84155; 84157; 84484; 85025; 85379; 85730; 87040; 87205; 88108; 89051; 93005; 93926; 94640; 94664; 96374; 96375; 99285